=== PATIENT | female | born 1975 | race Caucasian/White ===

== ENCOUNTER → 2020-01-22 11:48 | Outpatient (BNVA) | payer SELFPAY | PROVIDERS: PCP Nurse Practitioner Family; Visit Provider Family Medicine | DX: R30.0 Dysuria (principal) | CPT/HCPCS: 81003 ==

== ENCOUNTER → 2020-04-19 10:57 | Outpatient (BNVA) | payer OTHER, SELFPAY | PROVIDERS: PCP Nurse Practitioner Family; Visit Provider Emergency Medicine | DX: Z20.828 Contact with and (suspected) exposure to other viral communicable diseases (principal) | CPT/HCPCS: 87635 ==

== ENCOUNTER 2021-04-07 13:11 | Emergency (ER) | payer SELFPAY ==
--- NOTE | 2021-04-07 13:53 | ED_ITS ---
Documented by User: TERE Mitchell 04/07/21 16:04 HPI - COVID General: Chief Complaint: COVID symptoms Stated Complaint: Diff Breathing COVID + Time Seen by Provider: 04/07/21 15:11 History of Present Illness: HPI Narrative: Patient tested positive on the . Patient does not speak Serbian well and I spoke to her daughter Carrie through the phone. Patient finished quarantine on 07 April for COVID. Patient states she has some shortness of breath. Patient is no acute distress. Patient has hard time holding fluids down the last couple days as per the daughter. COVID Results: SARS-CoV-2 RNA (RT-PCR) Not detected (NOT DETECTED) 04/19/20 10:57 04/19/20 [facility] ED [facility]: Medical History (Updated 04/07/21 @ 18:36 by TERE Kwon) GERD (gastroesophageal reflux disease) Social History Smoking and tobacco status: never smoked Alcohol intake: never Course Vital Signs: Vital signs: Vital Signs Temperature 98.2 F 04/07/21 14:28 Pulse Rate 123 H 04/07/21 15:55 Respiratory Rate 18 04/07/21 15:55 Blood Pressure 115/77 04/07/21 14:28 Pulse Oximetry 92 04/07/21 18:31 MDM - COVID MDM Narrative: Medical decision making narrative: Brief history and physical exam was performed as part of the triage process. Due to current ED wait time patient will be placed in waiting room until a room becomes available. Explained to patient he/she will be seen in order of severity. Patient is currently safe to wait in the waiting room until we can get them placed. Patient informed that if condition worsens at any time to please let the front office agent know. Patient satting 90 to 93% triage and COVID waiting room been here for a while and put in for Zofran IM because of the vomiting she has had a last couple days as per her daughter. Nurse went to discharge her sats run anywhere from 88 to 91% home O2 evaluation put in. Patient being discharged at 1600 pending home O2 evaluation. Lab Data: Labs: Lab Results 04/07/21 04/07/21 18:25 18:25 WBC 4.0 10^3/uL 10^3/ uL (4.0-10.0) RBC 4.82 10^6/uL 10^6 /uL (4.1-5.3) Hgb 14.4 g/dL g/dL (11.5-15.3) Hct 42.8 % % (37.0-47.0) MCV 88.8 fl fl (81-99) MCH 29.9 pg pg (28.0-34.0) MCHC 33.6 g/dL g/dL (30.0-36.0) RDW 12.0 % L % (12.1-15.1) Plt Count 311 10^3/cmm 10^3 /cmm (130-400) MPV 10.2 fL fL (7.4-10.4) Neut % (Auto) 66.0 % % Lymph % (Auto) 25.8 % % Conway % (Auto) 7.6 % % Eos % (Auto) 0.0 % % Baso % (Auto) 0.3 % % Neut # (Auto) 2.62 10^3/uL 10^3 /uL (1.8-7.7) Lymph # (Auto) 1.0 10^3/uL 10^3/ uL (0.8-4.8) Conway # (Auto) 0.3 10^3/uL 10^3/ uL (0.2-0.9) Eos # (Auto) 0.0 10^3/uL 10^3/ uL (0.0-0.8) Baso # (Auto) 0.0 10^3/uL 10^3/ uL (0.0-0.1) Nucleated RBC % (a uto) 0 % % Nucleated RBCs # 0.0 /100WBC /100W BC D-Dimer 0.75 ug/mIFEU H u g/mIFEU (0-0.59) COVID Results: SARS-CoV-2 RNA (RT-PCR) Not detected (NOT DETECTED) 04/19/20 10:57 04/19/20 Discharge Plan Discharge Patient Disposition: Home Clinical Impression: Pneumonia due to 2019 novel coronavirus, Dehydration Condition: Stable Prescriptions: New Zofran 4 mg tablet 4 mg PO Q8H 3 Days Qty: 9 RF: 0 No Action methylprednisolone [Medrol (Erick)] 4 mg tablets,dose pack See Rx Instructions PO PER PKG DIR Qty: 21 RF: 0 azithromycin [Zithromax Z-Erick] 250 mg tablet See Rx Instructions PO .COMPLEX Qty: 6 RF: 0 promethazine-DM 6.25-15 mg/5 mL syrup 5 ml PO Q6H PRN (Reason: cough) Qty: 200 RF: 1 Discharge Orders: Discharge ED (Routine); Ordered 04/07/21 Ordered By: Chetan Nix Referrals: Morena Leon APN [Primary Care Provider] - Discharge Diet: Advance as tolerated Discharge Activity: Increase activity as tolerated Patient Instructions: COVID-19 (Coronavirus Disease 2019) (ED) Activity Restrictions/Additional Instructions: Follow-up with medical provider as directed. Take medications as prescribed. Return to the ER or your medical provider if condition worsens. Please read and understand discharge instructions. If any questions ask please. Make sure you drink clear fluids follow-up your primary care provider return here for worsening symptoms use albuterol inhaler 2 inhalations every 4 hours as needed for shortness of breath or cough. Seguimiento con el proveedor m?dico seg?n las indicaciones. [address] los medicamentos seg?n lo prescrito. Regrese a la pilar de emergencias o a sanchez proveedor m?dico si la condici?n empeora. Linda y comprenda las instrucciones de cathleen. Si tiene alguna pregunta, por favor. Aseg?rese de beber l?quidos elsa. Laura un seguimiento con sanchez proveedor de atenci?n primaria. Regrese aqu? si los s?ntomas empeoran. Use el inhalador de albuterol, 2 inhalaciones cada 4 horas, seg?n sea necesario, para la dificultad para respirar o la tos. Coding Level of Care Code ED Director Music for Chg Fwd Exam Detailed Documented by User: TERE Kwon 04/07/21 19:03 HPI - COVID General: Chief Complaint: COVID symptoms Stated Complaint: Diff Breathing COVID + Time Seen by Provider: 04/07/21 15:11 History of Present Illness: HPI Narrative: Patient has been ill for 2 weeks. She tested positive for COVID on the . Patient has been having some shortness of breath and then some nausea and vomiting persisting. Patient appea rs unwell but not toxic. Skin is warm and dry. Patient is Guinean-speaking. COVID 19 common symptoms: positive dyspnea, nausea and vomiting COVID Results: SARS-CoV-2 RNA (RT-PCR) Not detected (NOT DETECTED) 04/19/20 10:57 04/19/20 Review of Systems Const: Reports: malaise Resp: Reports: dyspnea GI: Reports: nausea and vomiting [facility] ED PFSH: Medical History (Updated 04/07/21 @ 18:36 by TERE Kwon) GERD (gastroesophageal reflux disease) Social History Smoking and tobacco status: never smoked Alcohol intake: never Physical Exam Const: COMMON NORMALS: healthy appearing HENMT: NOSE: Nasal discharge present MOUTH: Normal oral and palatal mucosa present Resp: COMMON NORMALS: normal respiratory effort and clear to auscultation bilaterally EFFORT & INSPECTION: Yes able to speak in complete sentences AUSCULTATION: clear to auscultation bilaterally Cardio: RATE: tachycardic GI: COMMON NORMALS: Soft to palpation INSPECTION: Yes normal to inspection PALPATION: Yes Soft to palpation and No Tenderness to palpation present (GI) Extremity: COMMON NORMALS: no pedal edema Psych: COMMON NORMALS: cooperative Course Vital Signs: Vital signs: Vital Signs Temperature 98.2 F 04/07/21 14:28 Pulse Rate 123 H 04/07/21 15:55 Respiratory Rate 18 04/07/21 15:55 Blood Pressure 115/77 04/07/21 14:28 Pulse Oximetry 92 04/07/21 18:31 MDM - COVID MDM Narrative: Medical decision making narrative: Patient with came in today for concerns of nausea and vomiting secondary to COVID-19. Patient reports some shortness of breath and a decrease in pulse oxygen running between 88 to 92% at home. Patient appears mildly unwell but nontoxic. Patient denies any chest pain. Lung sounds are clear to auscultation. Skin is warm and dry. Vital signs are normal except for some mild tachycardia at 120. Patient was treated with IV fluids for dehydration. Patient was given 1 dose of dexamethasone 10 mg to treat shortness of breath and COVID-19 pneumonia. Encourage patient to drink plenty of fluids prescription for ondansetron was given for nausea and vomiting. Patient should follow-up with primary care in 3 days for recheck. Laboratory values were unremarkable. D-dimer was 0.75 patient had no signs of chest pain or acute distress no concern for PE was noted at this time, and Wells score is 1.5 suggesting unlikely PE. Lab Data: Labs: Lab Results 04/07/21 04/07/21 18:25 18:25 WBC 4.0 10^3/uL 10^3/ uL (4.0-10.0) RBC 4.82 10^6/uL 10^6 /uL (4.1-5.3) Hgb 14.4 g/dL g/dL (11.5-15.3) Hct 42.8 % % (37.0-47.0) MCV 88.8 fl fl (81-99) MCH 29.9 pg pg (28.0-34.0) MCHC 33.6 g/dL g/dL (30.0-36.0) RDW 12.0 % L % (12.1-15.1) Plt Count 311 10^3/cmm 10^3 /cmm (130-400) MPV 10.2 fL fL (7.4-10.4) Neut % (Auto) 66.0 % % Lymph % (Auto) 25.8 % % Conway % (Auto) 7.6 % % Eos % (Auto) 0.0 % % Baso % (Auto) 0.3 % % Neut # (Auto) 2.62 10^3/uL 10^3 /uL (1.8-7.7) Lymph # (Auto) 1.0 10^3/uL 10^3/ uL (0.8-4.8) Conway # (Auto) 0.3 10^3/uL 10^3/ uL (0.2-0.9) Eos # (Auto) 0.0 10^3/uL 10^3/ uL (0.0-0.8) Baso # (Auto) 0.0 10^3/uL 10^3/ uL (0.0-0.1) Nucleated RBC % (a uto) 0 % % Nucleated RBCs # 0.0 /100WBC /100W BC D-Dimer 0.75 ug/mIFEU H u g/mIFEU (0-0.59) COVID Results: SARS-CoV-2 RNA (RT-PCR) Not detected (NOT DETECTED) 04/19/20 10:57 04/19/20 Discharge Plan Discharge Patient Disposition: Home Clinical Impression: Pneumonia due to 2019 novel coronavirus, Dehydration Condition: Stable Prescriptions: New Zofran 4 mg tablet 4 mg PO Q8H 3 Days Qty: 9 RF: 0 No Action methylprednisolone [Medrol (Erick)] 4 mg tablets,dose pack See Rx Instructions PO PER PKG DIR Qty: 21 RF: 0 azithromycin [Zithromax Z-Erick] 250 mg tablet See Rx Instructions PO .COMPLEX Qty: 6 RF: 0 promethazine-DM 6.25-15 mg/5 mL syrup 5 ml PO Q6H PRN (Reason: cough) Qty: 200 RF: 1 Discharge Orders: Discharge ED (Routine); Ordered 04/07/21 Ordered By: Chetan Nix Referrals: Morena Leon APN [Primary Care Provider] - Discharge Diet: Advance as tolerated Discharge Activity: Increase activity as tolerated Patient Instructions: COVID-19 (Coronavirus Disease 2019) (ED) Activity Restrictions/Additional Instructions: Follow-up with medical provider as directed. Take medications as prescribed. Return to the ER or your medical provider if condition worsens. Please read and understand discharge instructions. If any questions ask please. Make sure you drink clear fluids follow-up your primary care provider return here for worsening symptoms use albuterol inhaler 2 inhalations every 4 hours as needed for shortness of breath or cough. Seguimiento con el proveedor m?dico seg?n las indicaciones. Boulevard los medicamentos seg?n lo prescrito. Regrese a la pilar de emergencias o a sanchez proveedor m?dico si la condici?n empeora. Linda y comprenda las instrucciones de cathleen. Si tiene alguna pregunta, por favor. Aseg?rese de beber l?quidos elsa. Laura un seguimiento con sanchez proveedor de atenci?n primaria. Regrese aqu? si los s?ntomas empeoran. Use el inhalador de albuterol, 2 inhalaciones cada 4 horas, seg?n sea necesario, para la dificultad para respirar o la tos. Coding Level of Care Code ED Director Music for Chg Fwd Exam Detailed
--- NOTE | 2021-04-07 14:22 | XR_ITS ---
WS: [id number] Exam: XR chest 1V portable [id number] Date/Time of Exam: 04/07/2021 2:22 PM Reason For Exam: covid No priors. Patchy groundglass infiltrates seen throughout the right lung and the mid left lung suspicious for pn eumonia. The lungs are fully inflated. Normal cardiomediastinal silhouette. No pleural effusions. Unr emarkable bony structures. XR/XR chest 1V portable [id number] IMPRESSION: 1. Patchy groundglass infiltrates noted throughout the right lung as well as th e lateral mid left lung suggesting pneumonia.
[2021-04-07 14:28] VITALS: BP 115/77; PULSE 123; RESP 16; TEMP 36.8; O2SAT 92
[2021-04-07] MEDS: ondansetron 2 mg/ML SDV 2 mL 4 MG IM (15:54)
[2021-04-07 15:55] VITALS: PULSE 123; RESP 18; O2SAT 90
[2021-04-07 17:17] VITALS: O2SAT 92; O2SAT 93
[2021-04-07] MEDS: dexamethasone 10 mg/mL INJ IVP (18:29)
[2021-04-07] MEDS: sodium chloride 0.9% 1,000 ML 999 ML IV (18:29)
[2021-04-07 18:31] VITALS: O2SAT 92
[2021-04-07 18:32] LABS: Basophils % 0.3 %; Hematocrit 42.8 % (37.0-47.0); Hemoglobin 14.4 g/dL (11.5-15.3); Lymphocytes % 25.8 %; Mean Corpuscular HGB Conc 33.6 g/dL (30.0-36.0); Mean Corpuscular Hemoglobin 29.9 pg (28.0-34.0); Mean Corpuscular Volume 88.8 fl (81-99); Mean Platelet Volume 10.2 fL (7.4-10.4); Monocytes # 0.3 10^3/uL (0.2-0.9); Monocytes % 7.6 %; Neutrophils # 2.62 10^3/uL (1.8-7.7); Nucleated Red Blood Cells % 0 %; Platelet Count 311 10^3/cmm (130-400); Red Blood Count 4.82 10^6/uL (4.1-5.3)
[2021-04-07 18:50] LABS: D Dimer 0.75 ug/mIFEU (0-0.59)
[2021-04-07 19:19] LABS: Alanine Aminotransferase 22 U/L (0-33); Alkaline Phosphatase 72 IU/L (35-105); Anion Gap 20.5 (5-19); Aspartate Amino Transferase 39 U/L (0-32); Blood Urea Nitrogen 8 mg/dL (6-20); Calcium 8.4 mg/dL (8.5-10.5); Carbon Dioxide 21 mmol/L (22-29); Chloride 98 mmol/L (98-107); Globulin 3.2 g/dL (1.3-4.6); Glomerular Filtration Rate 133.4 mL/min (90-130); Glucose 92 mg/dL (65-115); Osmolality Calculated 280 mOsm/kg (285-295); Potassium 3.5 mmol/L (3.5-5.1); Sodium 136 mmol/L (136-145); Total Bilirubin 0.2 mg/dL (0.15-1.2); Total Protein 7.2 g/dL (6.6-8.7)
[2021-04-07] MEDS: albuterol 8 gm MDI 2 PUFF INHALATION (19:36)
[2021-04-07 19:37] VITALS: PULSE 116; RESP 16; O2SAT 90
[2021-04-07 20:04] VITALS: BP 116/74; PULSE 112; RESP 22; O2SAT 90
== END 2021-04-07 20:13 | disposition home or self-care (01) ==
PROVIDERS: Emergency Provider Nurse Practitioner Family
DX: U07.1 COVID-19 (principal); J12.82 Pneumonia due to coronavirus disease 2019; E86.0 Dehydration
CPT/HCPCS: 71045; 80053; 85025; 85378; 94640; 96361; 96372; 96374; 99284; J1100; J2405; J3535; J7030

== ENCOUNTER → 2022-08-03 13:54 | Outpatient (BNVA) | payer BC, SELFPAY | PROVIDERS: Visit Provider Nurse Practitioner Family | DX: R39.9 Unspecified symptoms and signs involving the genitourinary system (principal); N93.9 Abnormal uterine and vaginal bleeding, unspecified; B37.31 Acute candidiasis of vulva and vagina | CPT/HCPCS: 80053; 81000; 81003; 83001; 84146; 84443; 85025; 87086 ==

== ENCOUNTER → 2024-02-08 14:51 | Outpatient (BNVA) | payer BC, SELFPAY | PROVIDERS: Visit Provider Nurse Practitioner Family | DX: Z13.29 Encounter for screening for other suspected endocrine disorder (principal); H61.899 Other specified disorders of external ear, unspecified ear | CPT/HCPCS: 80053; 84443; 85025 ==